=== PATIENT | female | born 1950 | race African-American/Black ===

== ENCOUNTER 2016-05-30 15:35 | Emergency (ER) | payer BC ==
[~2016-05-30 15:35] MED LIST: CEPH500C PO; FAMO-63 PO; HYDR50CA2 PO; PIME30CR2 TP; PRED-220 PO
[2016-05-30 15:44] VITALS: BP 118/73
--- NOTE | 2016-05-30 16:21 | PHYS DOC ---
Past Medical History Past Medical History: Hypertension Past Surgical History: No Surgical History Additional Information: nonsmoker Alcohol Use: Occasionally Drug Use: None Adult General Chief Complaint Chief Complaint: LACERATION/AVULSION [facility] HPI Patient is a 65 year old female who presents with right eyebrow abrasion. The patient reports that she was bending over and hit her head on the bracket that was sticking out from the wall. This happened at approximately 1500 today. She denies loss of consciousness. She has not had any vision changes, dizziness, headache, nausea, vomiting, or neck pain. Her tetanus immunization is up-to- date. Her PCP is Dr. Ezra Hebert. Review of Systems Review of Systems Constitutional: Denies fever or chills. [] Eyes: Denies change in visual acuity, redness, or eye pain. [] GI: Denies abdominal pain, nausea, vomiting. [] Musculoskeletal: Denies back pain or joint pain. Denies neck pain. Integument: Denies rash or skin lesions. Reports right eyebrow abrasion. Neurologic: Denies headache, focal weakness or sensory changes. Denies loss of consciousness or dizziness. All systems reviewed and negative unless otherwise stated in the HPI. Allergies Allergies Allergies Coded Allergies Type Severity Reaction Last Updated Verified No Known Drug Allergies 04/20/16 No Physical Exam Physical Exam Constitutional: Well developed, well nourished, no acute distress, non-toxic appearance. [] HENT: Normocephalic, atraumatic, oropharynx moist. [] Eyes: PERRLA, EOMI, conjunctiva normal, no discharge. [] Neck: Normal range of motion, no tenderness, supple, no stridor. [] Skin: Warm, dry, no erythema, no rash. There is a 0.5 cm abrasion through the right eyebrow with bleeding controlled. Back: No midline tenderness, no CVA tenderness. [] Extremities: No tenderness, ROM intact, no edema. Distal pulses equal bilaterally. [] Neurologic: Alert and oriented X 3, normal motor function, normal sensory function, no focal deficits noted. CN II-XII grossly intact. Psychologic: Affect normal, judgement normal, mood normal. [] Current Patient Data Vital Signs Vital Signs Date Time Temp Pulse Resp B/P Pulse Ox O2 Delivery O2 Flow Rate FiO2 05/30/16 15:44 97.9 77 18 97 Room Air 97.9 EKG EKG [] Radiology/Procedures Radiology/Procedures [] Course & Med Decision Making Course & Med Decision Making Pertinent Labs and Imaging studies reviewed. (See chart for details) Patient presents with right eyebrow abrasion. She does not demonstrate any symptoms of concussion and she has a normal neurologic exam. The wound was cleaned with chlorhexidine scrub and irrigated with saline. Skin Affix tissue adhesive glue was applied over the wound. Wound care instructions and return precautions were discussed. The patient and significant other verbalize understanding and agree with plan. Dragon Disclaimer Dragon Disclaimer This electronic medical record was generated, in whole or in part, using a voice recognition dictation system. Departure Departure Impression: Primary Impression: Abrasion of eyebrow Disposition: HOME, SELF-CARE Condition: IMPROVED Referrals: EZRA HEBERT MD (PCP) Patient Instructions: Head Injury, Adult, [id number], Tissue Adhesive Wound Care, [id number] Additional Instructions: Your wound was repaired using skin adhesive glue. Wash with soap and water and pat dry. Do not apply antibiotic ointment or bandages, as these will cause the glue to come off sooner than desired. Apply ice to the area to decrease swelling and bruising. Return to the emergency department if you have increased headache pain, repetitive vomiting, change in vision, change in mental status, or signs of infection including redness, swelling, or drainage from the wound. Problem Qualifiers Primary Impression: Abrasion of eyebrow Encounter type: initial encounter Laterality: right Qualified Code: S00.211A - Abrasion of right eyelid and periocular area, initial encounter ANTONETTE GLORIA May 30, 2016 16:21
== END 2016-05-30 16:34 | disposition home or self-care (01) ==
LOC: ER 15:35
DX: S00.211A Abrasion of right eyelid and periocular area, initial encounter (principal); I10 Essential (primary) hypertension; W22.01XA Walked into wall, initial encounter; Y93.89 Activity, other specified; Y92.89 Other specified places as the place of occurrence of the external cause; Y99.8 Other external cause status
CPT/HCPCS: 99283